=== PATIENT | female | born 1995 | race Caucasian/White ===

== ENCOUNTER → 2017-05-07 | Outpatient (CLI) | payer OTHER ==
--- NOTE | 2017-05-09 05:54 | WWHP ---
DATE OF SERVICE: 05/07/2017 CHIEF COMPLAINT: The patient is here for her routine gynecologic exam. HPI: This is a 22-year-old G0 with an LMP of 04/29/17. She has been using condoms for control. She is complaining of skin lesion in the right groin area. She noticed this about 1 week ago after shaving in this area. She thought it was some type of ingrown hair follicle. She states she it has been slightly painful. She is otherwise without complaints. Past medical history is unremarkable. MEDICATIONS: None. ALLERGIES: No known drug allergies. Past surgical history is unremarkable. PAST TECHNICAL AGRONOMIST HISTORY: Menses are regular every month. She has no history of STDs. She has completed the HPV vaccination series. SOCIAL HISTORY: She socially smokes cigarettes and has about 1 pack of cigarettes per week. She drinks about 5 to 10 alcoholic drinks per week and denies drug use. She does have a boyfriend and is sexually active. She has been with him during the past 2 to 3 months. She does not live with him. She has had a total of about 6 sexual partners in her lifetime. She was first sexually active at age 16. She is currently a student a [employer] and is studying [employer]. FAMILY HISTORY: Maternal grandfather had colon cancer. REVIEW OF SYSTEMS: Weight has been stable. She denies respiratory, cardiac or GI problems. PHYSICAL EXAM: Blood pressure is 116/67. Height 5 feet 5 inches. Weight 168 pounds. Temperature 96.2. Pulse 69. This is a well-developed, well-nourished white female who is alert and oriented x3 in no acute distress. The patient has several tattoos and skin piercing. HEENT is within normal limits and she does have piercings in her nose. NECK: Supple without mass or thyromegaly. CHEST AND LUNGS: Clear to auscultation. HEART: Regular rate and rhythm. Breasts are without mass or discharge. She does have bilateral nipple piercings. Axillary exam is negative for adenopathy. BACK: Negative for CVA tenderness. ABDOMEN: Soft, nontender without palpable masses. She does have a navel piercing. PELVIC EXAM: External genitalia reveals an ulcerated skin lesion at the lateral aspect of the right labia majora near the groin crease. This measures approximately 5 to 6 mm. There is minimal erythema. There is a small amount of clear liquid in the center area. This is minimally tender upon doing HSV testing. There are no other lesions noted. Cervix and vagina appear normal. There is no unusual vaginal discharge. There is no cervical motion tenderness. The uterus is mid position, nongravid size and nontender. There are no palpable adnexal masses or tenderness. Rectal exam was deferred. EXTREMITIES: Nontender. IMPRESSION: 1. A 22-year-old female with ulcerated lesion at the lateral aspect of the right vulva near the groin creased. Differential diagnosis will include genital HSV as well as possible shaved area of an ingrown hair. 2. The patient is sexually active and is using condoms. PLAN: 1. Pap smear was performed. 2. Self-breast examination was discussed. 3. GC and chlamydia screening from the cervix have been obtained. 4. HSV testing at the ulcerated lesions on the right side was obtained. 5. Blood STD testing was offered and declined at this time. The patient will let me if she changes her mind. 6. STD prevention was discussed. I have stressed the importance of limiting sexual partners and to use condoms if she is sexually active. 7. We have discussed control options including control pills. She states she already was given a prescription for control pills by Dr. Corona. She is currently not using them, but will consider using them again in the near future. We have discussed control pill use and how to take them. 8. She will return in one year and p.r.n. MTDD
== END | disposition home or self-care (01) ==
LOC: WWCWWP 15:33
PROVIDERS: ATTEND Obstetrics & Gynecology
DX: Z11.3 Encounter for screening for infections with a predominantly sexual mode of transmission (principal); N76.6 Ulceration of vulva
CPT/HCPCS: 87491; 87529; 87591

== ENCOUNTER 2018-12-01 18:51 | Emergency (ER) | payer BC, OTHER ==
[2018-12-01 21:03] LABS: Appearance,Urine Clear (Clear); Bacteria,Urine Rare /hpf; Bilirubin,Urine Negative (Negative); Blood,Urine Negative (Negative); Color,Urine Light Yellow; Glucose,Urine (UA) Negative (Negative); Ketones,Urine 2+ (Negative); Leukocyte Esterase,Urine Small (Negative); Mucus,Urine Rare /hpf; Nitrite,Urine Negative (Negative); PH, Urine 5.5 (5.0-8.0); Protein,Urine Negative (Negative); RBC,Urine 1 /hpf (0-5); Specific Gravity,Urine 1.009 (1.001-1.035); Squamous Epithelial Cell,Urine 2 /hpf (0-4); Urobilinogen,Urine <2.0 mg/dL (<2.0); WBC,Urine 1 /hpf (0-5)
[2018-12-01 21:09] LABS: Basophils % (A) 0 %; Eosinophils % (A) 0 %; HCT 46.1 % (34.0-46.0); Lymphocytes # (A) 1.6 k/uL (1.0-4.8); Lymphocytes % (A) 16 %; MCH 29.8 pg (25.0-35.0); MCHC 32.4 g/dL (31.0-37.0); MCV 91.8 fL (80.0-100.0); Mean Platelet Volume 8.5; Monocytes # (A) 0.4 k/uL (0-1.0); Monocytes % (A) 5 %; Neutrophils # (A) 7.5 k/uL (1.3-7.7); Neutrophils % (A) 77 %; Platelet Count 198 k/uL (150-450); RBC 5.03 m/uL (3.80-5.40); RDW 13.4 % (11.5-15.5); WBC 9.7 k/uL (3.8-10.6)
--- NOTE | 2018-12-01 21:11 | ED ---
Chest Pain HPI - General Chief Complaint: Chest Pain Stated Complaint: chest pain Time Seen by Provider: 12/01/18 19:42 Source: patient Mode of arrival: ambulatory Limitations: no limitations - History of Present Illness Initial Comments: 23-year-old female patient presents to the emergency department today for evaluation of left-sided chest pressure. Patient that she's been having this sensation for the last 4 weeks. Patient states today the pressure seemed to increase and started to go through to her back. She denies any shortness of breath, cough, congestion with this. Denies any fevers or chills. Denies any palpitations or racing heart. Patient denies any history of similar symptoms prior to 4 weeks ago. States she does have a history of anxiety but never had this symptom with it. She denies any nausea, vomiting, or abdominal pain. Denies any difficulty with urination or bowel movements. Patient denies any recent rash,numbness, tingling, dizziness, weakness, hematuria, dysuria, urinary urgency, urinary frequency, headache, visual changes, or any other complaints. - Related Data Home Medications Medication Instructions Recorded Confirmed No Known Home Medications 12/01/18 12/01/18 Allergies Allergy/AdvReac Type Severity Reaction Status Date / Time No Known Allergies Allergy Verified 12/01/18 19:55 Review of Systems ROS Statement: Those systems with pertinent positive or pertinent negative responses have been documented in the HPI. ROS Other: All systems not noted in ROS Statement are negative. EKG Findings - EKG Comments: EKG Findings:: EKG obtained at 1920 shows normal sinus rhythm with a ventricular rate of 80, SD interval 138, QRS duration 82, QT 372, QTc 429. No evidence of ST elevation or depression. Past Medical History Past Medical History: No Reported History History of Any Multi-Drug Resistant Organisms: None Reported Past Surgical History: No Surgical Hx Reported Past Psychological History: Anxiety Smoking Status: Never smoker Past Alcohol Use History: None Reported Past Drug Use History: Marijuana General Exam Limitations: no limitations General appearance: alert, in no apparent distress, other (Social well- developed, well-nourished adult female patient in no acute distress. Vital signs upon presentation are temperature 98.2F, pulse 70, respirations 18, blood pressure 136/80, pulse ox 100% on room air.) Eye exam: Present: normal appearance, PERRL, EOMI. Absent: scleral icterus, conjunctival injection, periorbital swelling ENT exam: Present: normal exam, normal oropharynx, mucous membranes moist Respiratory exam: Present: normal lung sounds bilaterally. Absent: respiratory distress, wheezes, rales, rhonchi, stridor, chest wall tenderness Cardiovascular Exam: Present: regular rate, normal rhythm, normal heart sounds. Absent: systolic murmur, diastolic murmur, rubs, gallop, clicks GI/Abdominal exam: Present: soft, normal bowel sounds. Absent: distended, tenderness, guarding, rebound, rigid Neurological exam: Present: alert, oriented X3, CN II-XII intact Psychiatric exam: Present: normal affect, normal mood Skin exam: Present: warm, dry, intact, normal color. Absent: rash Course Vital Signs 12/01/18 12/01/18 19:08 22:55 Temperature 98.2 F 98.0 F Pulse Rate 70 80 Respiratory 18 16 Rate Blood Pressure 136/80 120/89 O2 Sat by Pulse 100 99 Oximetry Chest Pain MDM - [facility] RAD[facility]:Two-view x-ray of the chest is obtained. Report was reviewed in its entirety. Impression by Dr. Ray shows normal chest normal heart. MDM: 23-year-old female patient presents to the emergency department today for evaluation of left-sided chest pressure going on for the last 4 weeks. Physical examination was unremarkable. Lungs are clear to auscultation with good air movement. No chest wall tenderness. EKG showed normal sinus rhythm, chest x- ray was unremarkable. Labs reviewed and are unremarkable troponin negative. D- dimer negative. I did discuss findings and results with the patient. We did discuss possibility of anxiety as a cause for her symptoms. She is instructed to follow-up with her primary care physician for recheck, possible referral to cardiology, and further evaluation in 1-2 days. Return parameters were discussed in detail. She verbalizes understanding and agrees this plan. Disposition Clinical Impression: Atypical chest pain Disposition: HOME SELF-CARE Condition: Good Instructions (If sedation given, give patient instructions): Chest Pain (ED) Additional Instructions: Follow-up with your primary care physician for recheck in 1-2 days. Return to the emergency department immediately for any new, worsening, or concerning symptoms. Is patient prescribed a controlled substance at d/c from ED?: No Referrals: Yves Corona DO [Primary Care Provider] - 1-2 days Time of Disposition: 22:32
[2018-12-01 21:17] LABS: D-Dimer 0.52 mg/L FEU (<0.60); INR 0.9 (<1.2); Prothrombin Time 10.2 sec (9.0-12.0)
--- NOTE | 2018-12-01 21:20 | XR ---
EXAMINATION TYPE: XR chest 2V DATE OF EXAM: 12/01/2018 COMPARISON: NONE HISTORY: Left-sided chest pain TECHNIQUE: Frontal and lateral views of the chest are obtained. FINDINGS: Heart and mediastinum are normal. Lungs are clear. Diaphragm is normal. Bony thorax appear s normal. There are chest leads. IMPRESSION: Normal chest. Normal heart
[2018-12-01 21:29] LABS: ALT 8 U/L (9-52); AST 39 U/L (14-36); Albumin 4.6 g/dL (3.5-5.0); Alkaline Phosphatase 60 U/L (38-126); Anion Gap 12 mmol/L; Blood Urea Nitrogen 8 mg/dL (7-17); Calcium 9.5 mg/dL (8.4-10.2); Carbon Dioxide 19 mmol/L (22-30); Chloride 110 mmol/L (98-107); Glucose 75 mg/dL (74-99); Magnesium 1.9 mg/dL (1.6-2.3); Potassium 3.8 mmol/L (3.5-5.1); Sodium 141 mmol/L (137-145); Total Bilirubin 0.7 mg/dL (0.2-1.3); Total Protein 8.3 g/dL (6.3-8.2)
[2018-12-01 21:41] LABS: Creatine Kinase MB <0.2 ng/mL (0.0-2.4); Troponin I <0.012 ng/mL (0.000-0.034)
[2018-12-01 22:56] VITALS: BP 120/89; PULSE 80; RESP 16; TEMP 98
== END 2018-12-01 22:56 | disposition home or self-care (01) ==
LOC: EC 18:51
DX: R07.89 Other chest pain (principal)
CPT/HCPCS: 36415; 71046; 80053; 81001; 81025; 82553; 83735; 84484; 85025; 85379; 85610; 85730; 93005; 99285

== ENCOUNTER → 2021-03-15 | Outpatient (CLI) | payer BC ==
--- NOTE | 2021-03-15 19:56 | CONS ---
CONSULTATION DATE OF SERVICE: 03/15/2021. HISTORY: This is a 26-year-old lady has been evaluated in the sleep center for possible obstructive sleep apnea-hypopnea syndrome. HISTORY OF PRESENT ILLNESS/SLEEP AWAKE EVALUATION: Patient's usual sleep schedule on weekdays from 11 p.m. to 7 or 8 a.m. on weekends from 12 or 1 a.m. until 8 to 10 a.m. No problems with falling asleep, although she has a TV set in bedroom. She usually sleeps on side position or back position. She has extremely loud snoring and episodes of definitely stop breathing during sleep. She wakes up from sleep up to 2 times. She moves a lot during the sleep according to patient. During the day, she usually does not take naps, although she wakes up tired has difficult to sleep. Attention has problems with the memory, concentration and anxiety and the Sleepiness Scale increased to 10. PAST MEDICAL HISTORY: Positive for a little low function of thyroid in the past, recently normal. History of asthma in the past. MEDICATIONS: None. SOCIAL HISTORY: Negative for smoking nicotine. Quit smoking marijuana recently. Alcohol consumption occasional. FAMILY HISTORY: Thyroid problems, anemia. REVIEW OF SYSTEMS: Snoring, awakenings from sleep. PHYSICAL EXAMINATION: GENERAL: A lady without distress. BP 121/81, HR 87, RR 18, height 5 feet 4 inches, weight 155.4 pounds, body mass index 26.3, temperature 97.5, oxygen saturation at room air 98%. HEENT: PERRLA, EOMI. Oropharynx low position of soft palate. Mallampati 3. NECK: 13 inches in circumference. LUNGS: Clear to percussion and to auscultation. Good air exchange. No wheezing or rhonchi. HEART: S1, S2 regular. No murmurs, gallops, or rubs. ABDOMEN: Soft and nontender. Bowel sounds are present. No organomegaly appreciated. EXTREMITIES: No clubbing or cyanosis. COUNSELOR AIDE: Awake, alert, and oriented X3. Cranial nerves 2 to 7 intact. There is no fasciculation or atrophy. noted. No focal deficits observed. IMPRESSION: 1. Loud snoring, witnessed episodes of stopped breathing during sleep. Low position of soft palate. Mallampati 3 sleepiness. [place] Sleepiness Scale is 10. Obstructive sleep apnea-hypopnea syndrome. 2. History of hypothyroidism. 3. History of asthma. PLAN: 1. Home sleep apnea test to check the patient's breathing during sleep. 2. Sleep hygiene with adequate time in bed for at least 8 hours. 3. No driving if feeling sleepiness. 4. Followup after reviewing results of the sleep study. Thank you very much for allowing me to participate in management and for referring this patient for consultation. Florentino Valentin MD, PhD, FAASM Diplomat of [employer] [place] [employer] [facility] MMODL / IJN: [id number] /
== END ==
LOC: SLEEP 16:53
PROVIDERS: ATTEND Internal Medicine
DX: G47.33 Obstructive sleep apnea (adult) (pediatric) (principal); E03.9 Hypothyroidism, unspecified; J45.909 Unspecified asthma, uncomplicated
CPT/HCPCS: 99211